=== PATIENT | female | born 1965 | race Caucasian/White ===

== ENCOUNTER 2017-02-16 13:06 | Day surgery (SDC) | payer OTHER ==
[~2017-02-16] VITALS: Ht 154.9 cm; Wt 91.9 kg
[2017-02-16] MEDS ORDERED: NAPROXEN (14:32)
[2017-02-16] MEDS ORDERED: LEVOTHYROXINE (14:32)
[2017-02-16 15:48] VITALS: BP 122/71; PULSE 69; RESP 19
[2017-02-16] MEDS ORDERED: PROPOFOL 40 ML ONE (16:24)
[2017-02-16] MEDS ORDERED: LIDOCAINE 2% (SDV) 5 ML INJ ONE (16:24)
--- NOTE | 2017-02-16 16:46 | OPPN ---
Date/Time of Note Date/Time of Note DATE: 02/16/17 TIME: 16:43 Proc Note GI Procedure Date 02/16/17 Indication: other (Dyspepsia) Pre-procedure Diagnosis Dyspepsia Post-procedure Diagnosis Impression: Moderate distal esophagitis. Moderate gastritis. Rule out H. pylori infection. Biopsies obtained. Otherwise normal EGD. Plan: PPI therapy Review pathology. Follow-up as previously scheduled. . Procedure Performed: Endoscopy (With biopsies) Surgeon BYRON VALDIVIA MD See signature line Life Trainer none Anesthesia Type: MAC, other (Patient responded poorly to moderate sedation with significant agitation and had to be converted to a MAC) Anesthesiologist: LESLEY ACOSTA MD Tourniquet Time none EBL none Transfusion required none Biopsy 1: Gastric body and antrum Grafts/Implants none Tubes/Drains none Complication(s) none Disposition: home Procedure Description After informed consent, with the patient/relatives understanding the procedure, its indications, potential risks and complications, including but not limited to : allergic reaction, bleeding, perforation or infection, and after all pertinent questions were answered to the patients satisfaction, the patient/ relatives signed witnessed informed consent. Following this, premedication was administered slowly IV push under careful cardiovascular and respiratory monitoring with pulse oximetry, automatic blood pressure, and surveillance system monitor. The patient was scheduled for moderate sedation however she responded very poorly to moderate sedation with significant agitation did put at risk of the procedure. I requested anesthesiologist assisted with monitored anesthesia care. Once the sedative effect was achieved the patient was place in the left lateral decubitus, the panendoscope was introduced and advanced under visual control. Careful examination of the upper gastrointestinal tract, both on insertion as well as withdrawal of the instrument disclosing the following findings: ESOPHAGUS: the mucosa of the entire esophagus was carefully examined and showed the following findings: There is moderate erythema and edema the mucosa at the esophagogastric junction. Otherwise the mucosa appears within normal limits. There is no evidence of varices, neoplasm, or stricture. No Hiatal Hernia identified. STOMACH: Upon entrance to the stomach air was insufflated, the gastric portillo distended normally. The mucosa of the fundus, body and antrum of the stomach was carefully examined both head-on and on retroflexion, and showed the following findings: There is moderate erythema and edema the mucosa of the body and antrum the stomach. Biopsies were obtained to rule out H. pylori infection. Otherwise the mucosa appears within normal limits with no abnormalities. There is no evidence of ulcers or neoplasm. PYLORUS: The pylorus was carefully examined and showed the following findings: the pylorus appears patent and within normal limits, with no evidence of gastric outlet obstruction. DUODENUM: The duodenal mucosa was carefully examined in the duodenal bulb as well as the second portion of the duodenum and showed the following findings: the mucosa appears unremarkable with no evidence of duodenitis, ulcer or neoplasm. Copies To: CC: BYRON VALDIVIA MD, MORDO MD Feb 16, 2017 16:46
--- NOTE | 2017-02-16 16:48 | OPPN ---
Date/Time of Note Date/Time of Note DATE: 02/16/17 TIME: 16:47 Proc Note GI Procedure Date 02/16/17 Indication: other (Colorectal cancer screening) Pre-procedure Diagnosis Colorectal cancer screening Post-procedure Diagnosis Impression: Normal colonic mucosa to cecum. Moderate-sized internal hemorrhoids. Otherwise normal colonoscopy to cecum. Plan: Follow up as scheduled] High fiber diet Annual hemoccult stool testing [Screening colonoscopy in 10 years] . Procedure Performed: Colonoscopy Surgeon BYRON VALDIVIA MD See signature line Business Records Manager none Anesthesia Type: MAC, other (Patient responded poorly to moderate sedation with significant agitation and had to be converted to a MAC) Anesthesiologist: LESLEY ACOSTA MD Tourniquet Time none EBL none Transfusion required none Biopsy 1: None Grafts/Implants none Tubes/Drains none Complication(s) none Disposition: home Procedure Description After informed consent, with the patient/relatives understanding the procedure, its indications and potential risks and complications, including but not limited to: Allergic reaction, bleeding, perforation, infection, and after all pertinent questions were answered to the patient's satisfaction, the patient/ relatives signed the witnessed informed consent. Following this, premedication was administered slowly IV push under careful cardiovascular and respiratory monitoring with pulse OXIM[employer]RY, automatic blood pressure, and cardiac monitor technician. Once the sedative effect was achieved, the patient was placed in the left lateral decubitus position, digital rectal examination was performed. The colonoscope was then introduced and advanced under visual control throughout all segments of the colon including: the rectum, sigmoid, descending colon, splenic flexure, transverse colon, hepatic flexure, ascending colon and finally reaching the cecum which was clearly identified by transillumination, finger indentation and the ileocecal valve. Careful examination of the mucosa of the lower gastrointestinal tract both on insertion as well as withdrawal of the instrument disclosed the following findings: PREPARATION QUALITY: [Adequate], RECTAL EXAM: The anorectal area was visualized examined and digital rectal examination performed with the following findings: No evidence of perirectal disease, no masses. COLONIC MUCOSA: The mucosa of all segments of the colon was carefully examined and showed the following findings: the examined mucosa appears within normal limits. There is no evidence of inflammatory changes, diverticular formation, polyps or neoplasms, vascular malformation, or any other abnormality. Moderate-sized internal hemorrhoids The instrument was then withdrawn, the patient tolerated the procedure well and was transferred out of the Endoscopy Suite awake and in good condition to continue recovery under observation. Copies To: CC: BYRON VALDIVIA MD, MORDO MD Feb 16, 2017 16:48
[2017-02-16] MEDS ORDERED: MIDAZOLAM 1 MG/ML 2 ML INJ ONE ×3 (16:55→16:56)
[2017-02-16] MEDS ORDERED: FENTAnyl 50 MCG/ML VIAL ONE (16:55)
[2017-02-16 17:15] VITALS: BP 101/66; RESP 20
== END 2017-02-16 18:35 | disposition home or self-care (01) ==
LOC: GIL 13:06
PROVIDERS: ATTEND Internal Medicine Gastroenterology
DX: Z12.11 Encounter for screening for malignant neoplasm of colon (principal); K29.50 Unspecified chronic gastritis without bleeding; K20.9 Esophagitis, unspecified; K64.8 Other hemorrhoids; E03.9 Hypothyroidism, unspecified; E66.9 Obesity, unspecified; Z68.38 Body mass index [BMI] 38.0-38.9, adult
CPT/HCPCS: 43239; 45378; 88305; 88312; J2250; J3010; Z7610